=== PATIENT | female | born 1990 | race Caucasian/White ===

== ENCOUNTER 2023-08-26 07:30 | Inpatient (IN) ==
--- NOTE | 2023-08-10 09:02 | Anesthesiology Consultation ---
Date of Service August 10, 2023 Assessment & Plan (1) Encounter for pre-operative examination: Chart Review Chart Review: entry clerk initiated Per OB records- initial done with 1st due to FTP (baby 10lbs 6oz). Second had successful delivery. Would like to possibly attempt with current . -Infectious Disease screening: Per PAT nursing assessment on 08/10/23. No known infectious disease contacts in past 10 days or current infectious disease symptoms. No recent travel outside the country. History Surgery Operation Date: 08/26/23 07:30 Proposed Procedures p Section (Delivey of Baby Through Abdominal Incision) - Anuel Joshua MD Height/Weight Height: 5 ft 3 in Weight: 79.379 kg Allergies Allergy/AdvReac Type Severity Reaction Status Date / Time amoxicillin AdvReac Intermediate Gastrointestinal Verified 08/10/23 08:33 Upset erythromycin base AdvReac Intermediate Gastrointestinal Verified 08/10/23 08:33 Upset Medications Home Medications Medication Instructions Recorded Confirmed Last Taken omega-3 fatty acids [Fish Oil] 1 tab PO DAILY 04/11/23 08/10/23 Unknown 21-iron fu-folic acid 1 tab PO DAILY 04/11/23 08/10/23 Unknown [ Complete] Past Medical History Medical History History of chicken pox History of COVID-19 2020- no hosp; resolved No known health problems Past Family History Family History Grandfather (Maternal) Cardiovascular disease Grandmother (Maternal) Thyroid disease Denies family history of Ovarian cancer Breast cancer Colorectal cancer Past Surgical History Surgical History S/P section S/P wisdom tooth extraction Social History Smoking Status: Never smoker Do You Dip or Chew Tobacco: No Hx Alcohol Use: No Hx Substance Use: No substance use type: does not use Lab Results Anesthesia Preop Results Results Anesthesia Widget: Hgb 11.7 g/dl (12.0-16.0) L 06/16/23 Hct 36.2 % (37.0-47.0) L 06/16/23
[2023-08-26] MEDS ORDERED: OXYTOCIN 30 UNITS/NSS 30 UNITS/500 ML BAG IV PRN ×2 (07:43→20:27)
[2023-08-26] MEDS ORDERED: CALCIUM CARBONATE 500 MG CHEWABLE TAB PO PRN (07:43)
[2023-08-26] MEDS ORDERED: LIDOCAINE 1% LOCAL 20 ML VIAL INFIL PRN (07:43)
[2023-08-26 08:37] LABS: Hematocrit (blood only) 35.9 % (37.0-47.0); Hemoglobin 11.9 g/dl (12.0-16.0); Mean Corpuscular Hemoglobin 29.6 pg (25.0-34.0); Mean Corpuscular Hgb Conc 33.1 g/dL (32.0-36.0); Mean Corpuscular Volume 89.3 fL (80.0-100.0); Mean Platelet Volume 11.9 fL (9.4-12.4); Platelet Count 278 K/uL (130-400); RDW Coefficient of Variation 14.1 % (11.5-14.5); RDW Standard Deviation 45.6 fL (36.4-46.3); Red Blood Count 4.02 M/uL (4.20-5.40); White Blood Count 10.31 K/ul (4.8-10.8)
[2023-08-26] MEDS ORDERED: SODIUM CHLORIDE 0.9% 250 ML IV PRN (08:41)
[2023-08-26] MEDS: LACTATED RINGER'S 1,000 ML IV PRN (08:48)
[2023-08-26] MEDS: OXYTOCIN 30 UNITS/NSS 30 UNITS/500 ML BAG IV PRN (08:54)
--- NOTE | 2023-08-26 09:02 | History & Physical Report ---
Date of Service August 26, 2023 Assessment & Plan (1) Previous delivery affecting , antepartum: Plan: Nayana is a 32-year-old -0-0-2 currently at 40 weeks 6 days gestational age presents for a trial of labor after section induction of labor as detailed per HPI. We reviewed risks of previously and consent forms for a reviewed and signed. 1. Fetus: NST reactive 2. Labor: Pitocin per regular protocol. Will AROM when appropriate 3. GBS negative 4. Vitals within normal 5. Trial of labor after . Risks were reviewed and consent forms signed (2) Encounter for induction of labor: (3) Patient desires vaginal after section (): (4) History of : (5) Term : Admission and Anticipated Discharge Date Admission Date: August 26, 2023 History of Present Illness Primary Care Provider: NO PCP Nayana is a 32-year-old currently at 40 weeks 6 days gestational age presents for induction of labor trial of labor after . Patient has a history of a prior successful in 2021. Had a for failure to progress with delivery of a 10-1/2 pound baby. We have previously discussed the risks of including induction specifically. Discussed the risk of uterine rupture and potential outcomes associated with uterine rupture. All questions answered. consent form provided and signed today. This is otherwise uncomplicated to date OB Labs: Blood Type O Positive 04/18/23 Antibody Screen NEGATIVE 04/18/23 Hemoglobin 11.7 g/dl (12.0-16.0) L 06/16/23 Hematocrit 36.2 % (37.0-47.0) L 06/16/23 Mean Corpuscular Volume 86.8 fL (80.0-100.0) 04/18/23 Platelet Count 353 K/uL (130-400) 04/18/23 Rubella IgG Antibody Immune (Immune) 04/18/23 Rapid Plasma Reagin Nonreactive (Nonreactive) 04/18/23 Hepatitis B Surface Antigen. NON-REACTIVE (NON-REACTIVE) 04/18/23 Hepatitis C Antibody (EIA) NON-REACTIVE (NON-REACTIVE) 04/18/23 HIV (1&2) Ag and Ab Confirmation NON-REACTIVE (NON-REACTIVE) 04/18/23 Glucose 1 Hour 50 gm Load 104 mg/dl (70-130) 06/16/23 OB Optional Labs: No Data to Display Labs Reviewed: Initial OB Labs Blood Type & RH Antibody Screen HCT/HGB Platelets Hep C IgG 13yrs+ Old Pap Test Chlamydia- negative 01/13/23 Gonorrhea- negative 01/13/23 Rubella RPR Urine Culture/Screen-no significant growth 01/13/23 Allergies Allergy/AdvReac Type Severity Reaction Status Date / Time amoxicillin AdvReac Intermediate Gastrointestinal Verified 08/25/23 15:52 Upset erythromycin base AdvReac Intermediate Gastrointestinal Verified 08/25/23 15:52 Upset Home Medications Medication Instructions Recorded Confirmed Type omega-3 fatty acids [Fish Oil] 1 tab PO DAILY 04/11/23 08/26/23 History 21-iron fu-folic acid 1 tab PO DAILY 04/11/23 08/25/23 History [ Complete] Patient History Medical History History of chicken pox History of COVID-19 2020- no hosp; resolved No known health problems Surgical History S/P section S/P wisdom tooth extraction Family History Grandfather (Maternal) Cardiovascular disease Grandmother (Maternal) Thyroid disease Denies family history of Ovarian cancer Breast cancer Colorectal cancer Social History Smoking Status: Never smoker Second Hand Exposure: No; Do You Dip or Chew Tobacco: No; Tobacco Cessation Education Requested by Patient: No Hx Alcohol Use: No Hx Substance Use: No Preferred Language: Icelandic Communication Ability: Effective Hatchery Laborer Required: No Beliefs That Will Affect Care: None marital status: marital status details: David Cuellar(32) [phone] Current Living Situation: Spouse and Family Current Living Situation Comment: Pt lives with her and 4 yo son Christopher and 1.5 yo son Jm current occupational status: employed 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 Other Information That Helps Us Care for You: No Feels Safe at Home: Yes Safety Concerns: Feels Safe At This Time Assistive Devices: Glasses Physical Exam Genitourinary: normal external appearance OB Exam Abdomen: + vertex Manual OB Exam: + cervical dilation (1-2), + cervical effacement 80% and + station -2 OB Exam Monitor Tracing: + external FHT monitor used, + external uterine monitor used, + category I and + normal FHT variability Results & Data Vital Signs (Past 12 Hours) Vital Signs Temp Pulse Resp BP O2 Del Method 08/26/23 08:05 36.5 C 16 Room Air 08/26/23 07:45 89 130/78 Coding Level of Care Code None Diagnoses Previous delivery affecting , antepartum O34.219 Encounter for induction of labor Z34.90 Patient desires vaginal after section () O34.219 History of Z98.891 Term Z34.90
[2023-08-26] MEDS ORDERED: NALOXONE HCL 0.4 MG/1 ML VIAL/CARP IV PRN (18:04)
[2023-08-26] MEDS ORDERED: ROPIVACAINE 0.5% PF 5 MG/ML 20 ML VIAL EPI PRN (18:04)
[2023-08-26] MEDS ORDERED: fentANYL 2 MCG/ML BUPIVacaine 0.125%-NSS 100ML BAG EPI PRN (18:04)
[2023-08-26] MEDS ORDERED: NALBUPHINE HCL 5 MG in SYRINGE 0 ML IV PRN (18:04)
[2023-08-26] MEDS ORDERED: fentaNYL citrate PF 100 MCG/2 ML VIAL EPI PRN (18:04)
[2023-08-26] MEDS ORDERED: ePHEDrine sulfate 50 MG/ML AMP IV PRN (18:04)
[2023-08-26] MEDS ORDERED: SODIUM CHLORIDE 0.9% PF INJ 10 ML VIAL EPI PRN (18:04)
[2023-08-26] MEDS ORDERED: diphenhydrAMINE 50 MG/ML VIAL IV PRN (18:04)
[2023-08-26] MEDS ORDERED: LIDOCAINE 2% MPF LOCAL 5 ML VIAL EPI PRN (18:04)
[2023-08-26] MEDS ORDERED: NALOXONE HCL 1 MG in SODIUM CHLORIDE 0.9% 1,000 ML IV PRN (18:04)
[2023-08-26] MEDS ORDERED: BUPIVACAINE 0.25% PF 30 ML VIAL EPI PRN (18:04)
--- NOTE | 2023-08-26 18:04 | Anesthesiology Consultation ---
Date of Service August 26, 2023 Assessment & Plan (1) Encounter for pre-operative examination: Chart Review Chart Review: Patient NOT seen in Pre Admission Testing and Acceptable Risk for Labor Epidural Consults Requested none History Surgery Operation Date: 08/26/23 07:30 Proposed Procedures p Section - Anuel Joshua MD Height/Weight Height: 5 ft 3 in Weight: 79.832 kg Allergies Allergy/AdvReac Type Severity Reaction Status Date / Time amoxicillin AdvReac Intermediate Gastrointestinal Verified 08/25/23 15:52 Upset erythromycin base AdvReac Intermediate Gastrointestinal Verified 08/25/23 15:52 Upset Medications Home Medications Medication Instructions Recorded Confirmed Last Taken omega-3 fatty acids [Fish Oil] 1 tab PO DAILY 04/11/23 08/26/23 08/25/23 10:00 21-iron fu-folic acid 1 tab PO DAILY 04/11/23 08/25/23 Unknown [ Complete] Active Medications Generic Name Dose Route Start Last Admin Trade Name Freq PRN Reason Stop Dose Admin Lactated Ringer's 1,000 mls @ 125 mls/hr 08/26/23 07:43 08/26/23 17:46 Lr IV 08/28/23 07:42 999 mls/hr .Q8H PRN Infusion L&D Protocol Protocol Oxytocin 30 units in 500 mls @ 8 mls/hr 08/26/23 07:43 08/26/23 17:34 Pitocin 30 Units/Nss IV 08/28/23 07:42 0.48 units/hr .Q24H PRN 8 mls/hr Labor Induction/Augmentation Titration Protocol 0.48 UNITS/HR Past Medical History Medical History No known health problems History of COVID-19 2020- no hosp; resolved History of chicken pox Past Family History Family History Grandfather (Maternal) Cardiovascular disease Grandmother (Maternal) Thyroid disease Denies family history of Ovarian cancer Breast cancer Colorectal cancer Past Surgical History Surgical History S/P wisdom tooth extraction S/P section Social History Smoking Status: Never smoker Do You Dip or Chew Tobacco: No Hx Alcohol Use: No Hx Substance Use: No substance use type: does not use Physical Exam Vital Signs Last Vital Signs Temp 98.2 F 08/26/23 17:00 Pulse 100 H 08/26/23 16:59 Resp 22 08/26/23 17:30 BP 119/71 08/26/23 16:59 O2 Del Method Room Air 08/26/23 08:05 Testing Laboratory Results 08/26/23 08:15 Blood Type O Positive 08/26/23 08:15 Antibody Screen NEGATIVE 08/26/23 08:15
[2023-08-26] MEDS: LIDOCAINE 2%/EPINEPHRINE 1:200,000 20 ML PF ONE (18:18)
[2023-08-26] MEDS: BUPIVACAINE 0.25% PF 30 ML VIAL ONE (18:18)
[2023-08-26] MEDS: fentANYL 2 MCG/ML BUPIVacaine 0.125%-NSS 100ML BAG ONE (18:19)
[2023-08-26] MEDS: BUPIVACAINE 0.25% PF 30 ML VIAL EPI STA (18:24)
[2023-08-26] MEDS: fentaNYL citrate PF 100 MCG/2 ML VIAL ONE (18:24)
[2023-08-26] MEDS: fentaNYL citrate PF 100 MCG/2 ML VIAL EPI STA (18:25)
[2023-08-26] MEDS: LIDOCAINE 2%/EPINEPHRINE 1:200,000 20 ML PF EPI STA (18:25)
[2023-08-26] MEDS: SODIUM CHLORIDE 0.9% PF INJ 10 ML VIAL EPI STA (19:15)
[2023-08-26] MEDS: SODIUM CHLORIDE 0.9% PF INJ 10 ML VIAL ONE (19:16)
[2023-08-26] MEDS ORDERED: HYDROCORTISONE ACETATE 25 MG SUPP PR PRN (20:27)
[2023-08-26] MEDS ORDERED: bisacodyL 10 MG SUPP PR PRN (20:27)
[2023-08-26] MEDS ORDERED: ACETAMINOPHEN 325 MG TAB PO PRN (20:27)
[2023-08-26] MEDS: ePHEDrine sulfate 50 MG/ML AMP ONE (20:28)
--- NOTE | 2023-08-26 20:32 | Delivery Summary ---
Vaginal Delivery Summary Date of Service August 26, 2023 Vaginal Delivery Summary and 2nd Degree LAC Patient progressed to 10 cm dilated 100% effaced +2 station pushed over intact perineum with epidural anesthesia and delivered a viable female with weight and Apgars pending. Head delivered without difficulty followed by shoulders and body. No nuchal cord was noted. was noted be vigorous soon after delivery and 1 minute delayed cord clamping was initiated. Cord was then double clamped and cut and remained on maternal abdomen. Cord blood obtained. Attention was turned to delivery the placenta was delivered intact three-vessel cord gentle cord traction. Inspection of perineum vagina and cervix there is noted to be a second-degree perineal laceration which was repaired with 3-0 Vicryl in traditional crown stitch. Needle sponge and instrument counts were correct at the completion of the case. Both mother and stable in the immediate postdelivery timeframe. No complications noted and blood loss per [facility]BL [facility] Vaginal Delivery Charge Delivery Type Details: and 2nd Degree LAC
--- NOTE | 2023-08-26 20:40 | Anesthesia Procedure Note ---
Date of Service August 26, 2023 Anesthesia Post Epidural Note Vital Signs Vital Signs: Temp Pulse Resp BP Pulse Ox O2 Del Method 98.2 F 66 18 118/55 L 85 L Room Air 08/26/23 20:25 08/26/23 20:38 08/26/23 20:25 08/26/23 20:38 08/26/23 19:56 08/26/23 08:05 Pain Intensity Abdomen: Pain Intensity: 8 Notes Mental Status: alert / awake / arousable and participated in evaluation Nausea / Vomiting: adequately controlled Pain: adequately controlled Airway Patency, RR, SpO2: stable & adequate BP & HR: stable & adequate Hydration State: stable & adequate Neuraxial Anesthesia: was administered and sensory block is resolving Anesthetic Complications: no major complications apparent and Pt Satisfied with anesthetic care Epidural: Removed without complications and With tip intact
[2023-08-26] MEDS: DIPHTHER/TETAN/PERTUS Vaccine (Tdap, Adol/Adult) 0.5mL IM ONE (20:44)
[2023-08-26] MEDS: DOCUSATE SODIUM 100 MG CAP PO SCH (21:00)
[2023-08-26] MEDS: BENZOCAINE 20% SPRY 85 APPLN/85 GM CAN EXT PRN (21:59)
[2023-08-27] MEDS: IBUPROFEN 600 MG TAB PO PRN (02:09)
[2023-08-27] MEDS: ACETAMINOPHEN 325 MG TAB PO PRN (06:37)
--- NOTE | 2023-08-27 06:43 | Obstetrical Progress Note ---
Date of Service August 27, 2023 Assessment & Plan (1) Encounter for care and examination after delivery: Day 1 status post . Doing well. Stable for discharge at 24 hours if preferred. Subjective Ambulation: ambulating normally Voiding: no voiding problems Passing Gas:: Yes Diet Tolerance:: regular diet Lochia:: Moderate Feeding Type:: breast feeding Physical Exam Constitutional WD/WN, vitals as above Respiratory normal respiratory effort; no respiratory distress and no labored breathing Cardiovascular Extremities: no calf tenderness Gastrointestinal (Abdomen) Inspection/Auscultation: abdomen normal to inspection; abdomen not distended Percussion/Palpation: abdomen soft; abdomen nontender, no guarding and abdomen not rigid Genitourinary OB Exam Abdomen: + fundal height Fundus: + firm and + relation to umbilicus (Below); not tender or not boggy Results & Data Vital Signs (Past 12 Hours) Vital Signs Temp Pulse Pulse Resp BP BP Pulse Ox 08/27/23 02:15 36.7 C 61 18 125/72 96 08/26/23 22:00 36.7 C 85 18 115/70 99 08/26/23 21:57 79 115/70 08/26/23 21:55 36.7 C 18 08/26/23 21:26 74 113/54 L 08/26/23 21:25 36.8 C 18 08/26/23 21:11 75 120/57 L 08/26/23 20:55 36.8 C 18 08/26/23 20:55 68 111/73 08/26/23 20:40 36.8 C 18 08/26/23 20:40 71 107/66 08/26/23 20:38 66 118/55 L 08/26/23 20:25 36.8 C 18 08/26/23 20:25 68 117/56 L 08/26/23 20:23 68 115/59 L 08/26/23 20:10 36.8 C 18 08/26/23 20:04 78 102/56 L 08/26/23 19:59 121 H 164/117 H 08/26/23 19:56 94 H 85 L 08/26/23 19:55 36.8 C 18 08/26/23 19:53 97 H 83 L 08/26/23 19:52 81 96 08/26/23 19:49 86 125/75 08/26/23 19:46 86 95 08/26/23 19:43 121/81 08/26/23 19:42 81 95 08/26/23 19:36 103 H 91 08/26/23 19:33 82 80 L 08/26/23 19:32 97 H 96 08/26/23 19:27 97 H 97 08/26/23 19:21 83 83 L 08/26/23 19:19 80 104/58 L 08/26/23 19:16 88 100 08/26/23 19:12 36.6 C 18 08/26/23 19:04 76 113/56 L 08/26/23 19:00 18 08/26/23 19:00 18 08/26/23 18:52 85 93 08/26/23 18:51 80 97 08/26/23 18:46 75 99 08/26/23 18:44 76 92 08/26/23 18:43 71 99/58 L 08/26/23 18:42 75 86 L O2 Del Method 08/27/23 02:15 Room Air 08/26/23 22:00 Room Air 08/26/23 21:57 08/26/23 21:55 08/26/23 21:26 08/26/23 21:25 08/26/23 21:11 08/26/23 20:55 08/26/23 20:55 08/26/23 20:40 08/26/23 20:40 08/26/23 20:38 08/26/23 20:25 08/26/23 20:25 08/26/23 20:23 08/26/23 20:10 08/26/23 20:04 08/26/23 19:59 08/26/23 19:56 08/26/23 19:55 08/26/23 19:53 08/26/23 19:52 08/26/23 19:49 08/26/23 19:46 08/26/23 19:43 08/26/23 19:42 08/26/23 19:36 08/26/23 19:33 08/26/23 19:32 08/26/23 19:27 08/26/23 19:21 08/26/23 19:19 08/26/23 19:16 08/26/23 19:12 08/26/23 19:04 08/26/23 19:00 08/26/23 19:00 08/26/23 18:52 08/26/23 18:51 08/26/23 18:46 08/26/23 18:44 08/26/23 18:43 08/26/23 18:42
[2023-08-27] MEDS: PRENATAL VITAMIN 1 TAB PO SCH (08:26)
[2023-08-27] MEDS: FERROUS SULFATE 325 MG TAB PO SCH (08:26)
[2023-08-27] MEDS ORDERED: bisacodyL 5 MG TABEC PO SCH (20:00)
== END 2023-08-27 20:50 | disposition home or self-care (01) | DRG 807 ==
LOC: EDSTATUS 07:30 → 4S1 07:39 → 4E2 22:40

== ENCOUNTER 2025-03-21 08:20 | Inpatient (IN) ==
[2025-03-21] MEDS ORDERED: OXYTOCIN 30 UNITS/NSS 30 UNITS/500 ML BAG IV PRN ×2 (08:32→20:10)
[2025-03-21] MEDS ORDERED: LIDOCAINE 1% LOCAL 20 ML VIAL INFIL PRN (08:32)
--- NOTE | 2025-03-21 08:35 | History & Physical Report ---
Date of Service March 21, 2025 Assessment & Plan (1) Previous delivery affecting , antepartum: (2) Elderly multigravida: Plan Plan pitocin iol, arom when appropriate, epidural on demand. consent form signed. Accepts risk with pitocin, fetus category one. anticipate . Unfortunately, gbs was not collected. Will treat as unknown status. Admission and Anticipated Discharge Date Admission Date: March 21, 2025 History of Present Illness Chief Complaint: iol Primary Care Provider: NO PCP Patient is a 34yowf with iup at 39 6/7 weeks who presents for iol. she has a hx of c/s in her first and two successful vbacs. She has a favorable cervix. and Delivery Plans AMA Weekly NST's @ 36 weeks Hx FTP, macrosomia 2 successful wishes to TOLAC--Consent signed OB Labs: Blood Type O Positive 08/23/24 Antibody Screen NEGATIVE 08/23/24 Hgb 11.3 g/dl (12.0-16.0) L 01/19/25 Hct 34.4 % (37.0-47.0) L 01/19/25 MCV 86.7 fL (80.0-100.0) 08/23/24 Plt Count 443 K/uL (130-400) H 08/23/24 Rubella IgG Antibody Immune (Immune) 08/23/24 RPR Nonreactive (Nonreactive) 04/18/23 Treponema pallidum Ab Negative (Negative) 01/19/25 Hep Bs Antigen Negative (Negative) 08/23/24 Hep Bs Antigen NON-REACTIVE (NON-REACTIVE) 04/18/23 Hepatitis C Antibody Negative (Negative) 08/23/24 Hepatitis C Ab (EIA) NON-REACTIVE (NON-REACTIVE) 04/18/23 HIV 1&2 Ab/P24 Ag 4thGn Negative (Negative) 08/23/24 HIV (1&2) Ag & Ab Conf NON-REACTIVE (NON-REACTIVE) 04/18/23 Glucose 1 Hr 50 gm 132 mg/dl (70-130) H 10/25/24 OB Optional Labs: Chlamydia trachomatis RNA Not Detected (NotDetected) 08/23/24 Neisseria gonorrhoeae RNA Not Detected (NotDetected) 08/23/24 Labs Reviewed: passed 16 week 2 hr gtt--akh declined genetics gbs --not obtained Allergies Allergy/AdvReac Type Severity Reaction Status Date / Time amoxicillin AdvReac Intermediate Gastrointestinal Verified 03/21/25 08:50 Upset erythromycin base AdvReac Intermediate Gastrointestinal Verified 03/21/25 08:50 Upset Home Medications Medication Instructions Recorded Confirmed Type omega-3 fatty acids [Fish Oil] 1 tab PO DAILY 04/11/23 03/21/25 History 21-iron fu-folic acid 1 tab PO DAILY 04/11/23 03/21/25 History [ Complete] Patient History Medical History (Updated 03/21/25 @ 08:49 by Dorys Hughes, RN) History of 2 successful No known health problems History of COVID-19 2020- no hosp; resolved History of chicken pox Surgical History (Updated 03/21/25 @ 08:49 by Dorys Hughes, RN) S/P wisdom tooth extraction S/P section 2019- Failure to progress Family History Grandfather (Maternal) Cardiovascular disease Grandmother (Maternal) Thyroid disease Denies family history of Ovarian cancer Breast cancer Colorectal cancer Social History (Updated 03/21/25 @ 08:50 by Dorys Hughes, [email or web address]) Smoking Status: Never smoker Second Hand Exposure: No; Do You Dip or Chew Tobacco: No; Hx Alcohol Use: No Hx Substance Use: No Preferred Language: French Communication Ability: Effective Pipelines Laborer Required: No Beliefs That Will Affect Care: None marital status: marital status details: David Cuellar(33) [phone] Current Living Situation: Spouse and Family Current Living Situation Comment: Pt lives with her and 3 children, no pet current occupational status: unemployed current occupation: homemaker Feels Safe at Home: Yes Safety Concerns: Feels Safe At This Time OB History Past Pregnancies Del. Date GA wks Lbr Lgth wt Sex Type del Anes Place Del Prov ? Comment 03/09/19 40 36 10-6 M Spinal Other [place] N FTP 10/21/21 40 6 7-8 M Epidu ral Other [facility] N 08/26/23 40 8lbs 9.2ozs F E pidural [facility] Dr[facility] [employer] REPRESENTATIVE History noncontributory Physical Exam Constitutional: WD/WN, vitals as above Gastrointestinal (Abdomen): soft, gravid, nt Psychiatric: A+Ox3, euthymic affect Genitourinary: cx--/-2/post/soft toco--irregular efm--130s with mod variability, accels to 50s, no decels Coding Level of Care Code None Diagnoses Previous delivery affecting , antepartum O34.219 Elderly multigravida O09.529
[2025-03-21] MEDS ORDERED: SODIUM CHLORIDE 0.9% 100 ML IV PRN (09:17)
[2025-03-21 09:48] LABS: Hematocrit (blood only) 33.3 % (37.0-47.0); Hemoglobin 10.7 g/dL (12.0-16.0); Mean Corpuscular Hemoglobin 28.0 pg (25.0-34.0); Mean Corpuscular Volume 87.2 fL (80.0-100.0); Platelet Count 289 K/uL (130-400); RDW Standard Deviation 42.2 fL (36.4-46.3); Red Blood Count 3.82 M/uL (4.20-5.40); White Blood Count 11.85 K/ul (4.8-10.8)
[2025-03-21] MEDS: LACTATED RINGER'S 1,000 ML IV PRN (10:01)
[2025-03-21] MEDS: OXYTOCIN 30 UNITS/NSS 30 UNITS/500 ML BAG IV PRN (10:01)
[2025-03-21] MEDS: PENICILLIN GK 6 MU in DEXTROSE 5% 250 ML IV STA (10:27)
[2025-03-21] MEDS ORDERED: ROPIVACAINE 0.5% PF 5 MG/ML 20 ML VIAL EPI PRN (13:13)
[2025-03-21] MEDS ORDERED: NALOXONE HCL 1 MG in SODIUM CHLORIDE 0.9% 1,000 ML IV PRN (13:13)
[2025-03-21] MEDS ORDERED: ONDANSETRON INJ 2 MG/ML 2 ML VIAL IV PRN (13:13)
[2025-03-21] MEDS ORDERED: diphenhydrAMINE 50 MG/ML VIAL IV PRN (13:13)
[2025-03-21] MEDS ORDERED: NALOXONE HCL 0.4 MG/1 ML VIAL/CARP IV PRN (13:13)
[2025-03-21] MEDS ORDERED: LIDOCAINE 2% MPF LOCAL 5 ML VIAL EPI PRN (13:13)
[2025-03-21] MEDS ORDERED: fentANYL 2 MCG/ML BUPIVacaine 0.125%-NSS 100ML BAG EPI PRN (13:13)
[2025-03-21] MEDS ORDERED: SODIUM CHLORIDE 0.9% PF INJ 10 ML VIAL EPI PRN (13:13)
[2025-03-21] MEDS ORDERED: NALBUPHINE HCL INJ 10 MG/ML AMP IV PRN (13:13)
--- NOTE | 2025-03-21 13:13 | Anesthesiology Consultation ---
Date of Service March 21, 2025 Assessment & Plan (1) Encounter for pre-operative examination: Chart Review Chart Review: Patient NOT seen in Pre Admission Testing and Acceptable Risk for Labor Epidural Consults Requested none History Height/Weight Height: 5 ft 3 in Weight: 78.018 kg Allergies Allergy/AdvReac Type Severity Reaction Status Date / Time amoxicillin AdvReac Intermediate Gastrointestinal Verified 03/21/25 08:50 Upset erythromycin base AdvReac Intermediate Gastrointestinal Verified 03/21/25 08:50 Upset Medications Home Medications Medication Instructions Recorded Confirmed Last Taken omega-3 fatty acids [Fish Oil] 1 tab PO DAILY 04/11/23 03/21/25 08/25/23 10:00 21-iron fu-folic acid 1 tab PO DAILY 04/11/23 03/21/25 Unknown [ Complete] Active Medications Generic Name Dose Route Start Last Admin Trade Name Freq PRN Reason Stop Dose Admin Oxytocin 30 units in 500 mls @ 8 mls/hr 03/21/25 08:32 03/21/25 11:45 Pitocin 30 Units/Nss IV 03/23/25 08:31 0.48 units/hr .Q24H PRN 8 mls/hr Labor Induction/Augmentation Titration Protocol 0.48 UNITS/HR Lactated Ringer's 1,000 mls @ 125 mls/hr 03/21/25 08:32 03/21/25 12:30 Lr IV 03/23/25 08:31 999 mls/hr .Q8H PRN Infusion L&D Protocol Protocol Past Medical History Medical History History of 2 successful No known health problems History of COVID-19 2020- no hosp; resolved History of chicken pox Past Family History Family History Grandfather (Maternal) Cardiovascular disease Grandmother (Maternal) Thyroid disease Denies family history of Ovarian cancer Breast cancer Colorectal cancer Past Surgical History Surgical History S/P wisdom tooth extraction S/P section 2019- Failure to progress Social History Smoking Status: Never smoker Do You Dip or Chew Tobacco: No Hx Alcohol Use: No Hx Substance Use: No substance use type: does not use Physical Exam Vital Signs Last Vital Signs Temp 98.2 F 03/21/25 08:44 Pulse 64 03/21/25 13:12 Resp 18 03/21/25 08:44 BP 98/56 L 03/21/25 13:04 Testing Laboratory Results 03/21/25 09:22 Blood Type O Positive 03/21/25 09:22 Antibody Screen NEGATIVE 03/21/25 09:22
[2025-03-21] MEDS: BUPIVACAINE 0.25% PF 30 ML VIAL ONE (13:35)
[2025-03-21] MEDS: LIDOCAINE 2%/EPINEPHRINE 1:200,000 20 ML PF ONE (13:35)
[2025-03-21] MEDS: fentANYL 2 MCG/ML BUPIVacaine 0.125%-NSS 100ML BAG ONE (13:40)
[2025-03-21] MEDS: SODIUM CHLORIDE 0.9% PF INJ 10 ML VIAL ONE (13:42)
[2025-03-21] MEDS: BUPIVACAINE 0.25% PF 30 ML VIAL EPI STA (14:09)
[2025-03-21] MEDS: LIDOCAINE 2%/EPINEPHRINE 1:200,000 20 ML PF EPI STA (14:09)
[2025-03-21] MEDS: SODIUM CHLORIDE 0.9% PF INJ 10 ML VIAL EPI STA (14:09)
[2025-03-21] MEDS: PENICILLIN GK 3 MU in DEXTROSE 5% 100 ML IV PRN (14:30)
--- NOTE | 2025-03-21 14:43 | Labor Progress Brief Note ---
Date of Service March 21, 2025 Subjective comfortable after epidural Assessment & Plan (1) Previous delivery affecting , antepartum: (2) Encounter for induction of labor: Plan continue current plan. fetus category one. Admission and Anticipated Discharge Date Admission Date: March 21, 2025 Physical Exam Physical Exam: cx--4/80/-2, off to right arom--clear toco==q2-3, pit at 8 efm--130s wtih mod variability, accels present, no decels Results & Data Vital Signs (Past 12 Hours) Vital Signs Temp Pulse Resp BP Pulse Ox 03/21/25 14:37 71 98 03/21/25 14:32 80 98 03/21/25 14:28 65 106/61 03/21/25 14:27 64 97 03/21/25 14:23 68 112/66 03/21/25 14:22 68 97 03/21/25 14:18 64 110/64 03/21/25 14:17 63 97 03/21/25 14:15 18 03/21/25 14:14 61 110/66 03/21/25 14:12 61 98 03/21/25 14:08 68 111/65 03/21/25 14:07 69 98 03/21/25 14:05 65 109/64 03/21/25 14:02 68 98 03/21/25 14:00 20 03/21/25 13:58 68 106/62 03/21/25 13:57 66 97 03/21/25 13:54 66 108/61 03/21/25 13:52 65 97 03/21/25 13:49 71 117/61 03/21/25 13:47 70 98 03/21/25 13:45 18 03/21/25 13:42 98 03/21/25 13:42 74 03/21/25 13:42 73 114/63 03/21/25 13:40 71 113/65 03/21/25 13:38 66 107/62 03/21/25 13:37 63 99 03/21/25 13:36 69 111/63 03/21/25 13:35 70 110/59 L 03/21/25 13:32 72 98 03/21/25 13:27 72 100 03/21/25 13:22 79 100 03/21/25 13:17 69 100 03/21/25 13:12 64 100 03/21/25 13:04 70 98/56 L 03/21/25 12:05 62 111/75 03/21/25 11:06 72 114/74 03/21/25 11:00 16 03/21/25 11:00 36.8 C 16 03/21/25 10:03 73 116/76 03/21/25 08:44 36.8 C 18 03/21/25 08:35 76 122/75 Coding Level of Care Code None Diagnoses Previous delivery affecting , antepartum O34.219 Encounter for induction of labor Z34.90
[2025-03-21] MEDS: BUPIVACAINE 0.25% PF 30 ML VIAL EPI PRN (17:28)
--- NOTE | 2025-03-21 17:30 | Anesthesia Procedure Note ---
Date of Service March 21, 2025 Anesthesia Epidural Re-Dose Vital Signs Temp Pulse Resp BP Pulse Ox 98.1 F 68 20 107/65 99 03/21/25 17:00 03/21/25 17:27 03/21/25 17:00 03/21/25 17:19 03/21/25 17:27 Notes Pain Intensity: 2 Dilatation (cm): 4.5 Effacement (%): 80 Called by nursing to evaluate epidural as the patient is having increased pain. The epidural was re-dosed with the following medications (all medications via epidural route) after negative aspiration of the epidural catheter for CSF/HEME. 0.25% Bupivacaine (8ml) with 100 mcg Fentanyl After Epidural Re-Dose Mental Status: alert / awake / arousable Pain: improving with treatment Airway Patency, RR, SpO2: stable & adequate BP & HR: stable & adequate
--- NOTE | 2025-03-21 17:51 | Labor Progress Brief Note ---
Date of Service March 21, 2025 Subjective comfortable. baby just started having variables. checked by nursing and thought complete and will start pushing Assessment & Plan (1) Encounter for induction of labor: Plan position for resolution of lip and descent of head. Fetus overall reassuring category two. anticipate . Admission and Anticipated Discharge Date Admission Date: March 21, 2025 Physical Exam Physical Exam: cx--ant lip/0, not reducible with pushing toco--q2min, pit at 10 efm--130 with mod variability, accels present, variables with contractions Results & Data Vital Signs (Past 12 Hours) Vital Signs Temp Pulse Resp BP Pulse Ox 03/21/25 17:47 92 H 99 03/21/25 17:45 98 H 94 03/21/25 17:39 83 139/63 03/21/25 17:37 66 98 03/21/25 17:36 68 201/92 H 03/21/25 17:32 77 99 03/21/25 17:27 68 99 03/21/25 17:22 62 98 03/21/25 17:19 72 107/65 03/21/25 17:17 63 97 03/21/25 17:12 66 97 03/21/25 17:07 73 99 03/21/25 17:04 64 109/64 03/21/25 17:02 85 98 03/21/25 17:00 20 03/21/25 17:00 36.7 C 20 03/21/25 16:57 61 97 03/21/25 16:52 65 97 03/21/25 16:49 82 111/61 03/21/25 16:47 68 98 03/21/25 16:42 63 97 03/21/25 16:37 71 98 03/21/25 16:36 75 135/80 03/21/25 16:32 65 98 03/21/25 16:30 18 03/21/25 16:30 18 03/21/25 16:27 63 97 03/21/25 16:22 62 97 03/21/25 16:19 64 121/73 03/21/25 16:17 64 98 03/21/25 16:12 70 98 03/21/25 16:07 64 97 03/21/25 16:03 71 108/66 03/21/25 16:02 67 98 03/21/25 16:00 20 03/21/25 16:00 20 03/21/25 15:57 72 98 03/21/25 15:52 64 98 03/21/25 15:50 68 117/70 03/21/25 15:47 69 98 03/21/25 15:42 67 97 03/21/25 15:37 80 98 03/21/25 15:35 80 117/59 L 03/21/25 15:32 76 98 03/21/25 15:30 20 03/21/25 15:30 20 03/21/25 15:27 75 96 03/21/25 15:22 81 99 03/21/25 15:20 72 104/64 03/21/25 15:17 72 99 03/21/25 15:12 80 98 03/21/25 15:07 68 97 03/21/25 15:04 63 115/62 03/21/25 15:02 68 97 03/21/25 15:00 18 03/21/25 15:00 36.9 C 18 03/21/25 14:57 68 97 03/21/25 14:52 75 98 03/21/25 14:50 68 110/68 03/21/25 14:47 62 97 03/21/25 14:45 18 03/21/25 14:42 78 97 03/21/25 14:37 71 98 03/21/25 14:32 80 98 03/21/25 14:30 20 03/21/25 14:28 65 106/61 03/21/25 14:27 64 97 03/21/25 14:23 68 112/66 03/21/25 14:22 68 97 03/21/25 14:18 64 110/64 03/21/25 14:17 63 97 03/21/25 14:15 18 03/21/25 14:14 61 110/66 03/21/25 14:12 61 98 03/21/25 14:08 68 111/65 03/21/25 14:07 69 98 03/21/25 14:05 65 109/64 03/21/25 14:02 68 98 03/21/25 14:00 20 03/21/25 13:58 68 106/62 03/21/25 13:57 66 97 03/21/25 13:54 66 108/61 03/21/25 13:52 65 97 12/18/25 13:49 71 117/61 03/21/25 13:47 70 98 03/21/25 13:45 18 03/21/25 13:42 98 03/21/25 13:42 74 03/21/25 13:42 73 114/63 03/21/25 13:40 71 113/65 03/21/25 13:38 66 107/62 03/21/25 13:37 63 99 03/21/25 13:36 69 111/63 03/21/25 13:35 70 110/59 L 03/21/25 13:32 72 98 03/21/25 13:27 72 100 03/21/25 13:22 79 100 03/21/25 13:17 69 100 03/21/25 13:12 64 100 03/21/25 13:04 70 98/56 L 03/21/25 12:05 62 111/75 03/21/25 11:06 72 114/74 03/21/25 11:00 16 03/21/25 11:00 36.8 C 16 03/21/25 10:03 73 116/76 03/21/25 08:44 36.8 C 18 03/21/25 08:35 76 122/75 Coding Level of Care Code None Diagnoses Encounter for induction of labor Z34.90
[2025-03-21] MEDS ORDERED: NURSING L&D Epidural Breakthrough Pain Update ONE (18:33)
--- NOTE | 2025-03-21 19:45 | Delivery Summary ---
Vaginal Delivery Summary Date of Service March 21, 2025 Vaginal Delivery Summary and 2nd Degree LAC Pre-operative Diagnosis: at 39 weeks hx of first delivery c/s hx of 2 successful vbacs Post-operative Diagnosis: same Procedure: pitocin iol epidural arom second degree laceration and repair QBL: 250cc Anesthesia: epidural Procedure: the patient was admitted with a favorable cervix. Pitocin augmentation and epidural at 4cm. then arom for clear fluid. She progressed to c/c/+1. The patient pushed for 2 contractions to deliver a viable male in rop position. The nose and mouth were bulb suctioned on the perineum and the rest of the was then delivered without difficulty through a loose nuchal cord. The baby was vigorous. The nose and mouth were again bulb suctioned and the infant was placed in the maternal abdomen for drying and attention. Cord was clamped and cut at one minute of life. Cord blood and segment obtained. Placenta delivered spontaneous, intact with a three vessel cord. Cervix/sulci/rectum were intact. A second degree perineal laceration was repaired in the normal standard fashion. Hemostasis obtained with dilute pitocin and fundal massage. Apgars were 8/9. Mother and baby doing well at the end of the delivery. [facility] Vaginal Delivery Charge Delivery Type Details: and 2nd Degree LAC
[2025-03-21] MEDS ORDERED: DIPHTHER/TETAN/PERTUS Vaccine (Tdap, Adol/Adult) 0.5mL IM ONE (20:10)
[2025-03-21] MEDS ORDERED: HYDROCORTISONE ACETATE 25 MG SUPP PR PRN (20:10)
[2025-03-21] MEDS: DOCUSATE SODIUM 100 MG CAP PO SCH (20:51)
[2025-03-21] MEDS: BENZOCAINE 20% SPRY 85 APPLN/85 GM CAN EXT PRN (20:51)
[2025-03-21] MEDS: IBUPROFEN 600 MG TAB PO PRN (20:51)
--- NOTE | 2025-03-21 20:54 | Anesthesia Procedure Note ---
Date of Service March 21, 2025 Anesthesia Post Epidural Note Vital Signs Vital Signs: Temp Pulse Resp BP Pulse Ox 98.1 F 80 18 135/79 79 L 03/21/25 19:05 03/21/25 20:44 03/21/25 19:05 03/21/25 20:44 03/21/25 19:20 Pain Intensity Bilateral Abdomen: Pain Intensity: 3 Notes Mental Status: alert / awake / arousable and participated in evaluation Nausea / Vomiting: adequately controlled Pain: adequately controlled Airway Patency, RR, SpO2: stable & adequate BP & HR: stable & adequate Hydration State: stable & adequate Neuraxial Anesthesia: was administered and sensory block is resolving Anesthetic Complications: no major complications apparent and Pt Satisfied with anesthetic care Epidural: Removed without complications and With tip intact
[2025-03-21 22:55] VITALS: RESP 16
[2025-03-21] MEDS: ACETAMINOPHEN 325 MG TAB PO PRN (23:37)
[2025-03-22 06:29] LABS: Hematocrit (blood only) 29.3 % (37.0-47.0); Hemoglobin 9.8 g/dL (12.0-16.0)
--- NOTE | 2025-03-22 06:56 | Obstetrical Progress Note ---
Date of Service March 22, 2025 Assessment & Plan (1) Encounter for assessment: Plan Doing well. Would like to be d/c later tonight after 24 hours. Instructions reviewed. rtc in 6 weeks for pp visit. Day #:: 1 Subjective Ambulation: ambulating normally Voiding: no voiding problems Passing Gas:: Yes Diet Tolerance:: regular diet Lochia:: Small Feeding Type:: breast feeding Doing well. Physical Exam Constitutional well developed Respiratory normal respiratory effort, lungs clear to auscultation Cardiovascular RRR, no murmur, no edema Extremities: no calf tenderness and no edema Gastrointestinal (Abdomen) soft, nt, nd, ff/nt at u Psychiatric A+Ox3, euthymic affect Results & Data Vital Signs (Past 12 Hours) Vital Signs Temp Pulse Pulse Resp BP BP Pulse Ox 03/22/25 03:45 36.8 C 66 16 117/68 96 03/21/25 23:15 36.8 C 82 16 128/74 97 03/21/25 22:55 36.7 C 69 16 136/81 96 03/21/25 21:59 65 122/70 03/21/25 21:45 36.7 C 18 03/21/25 21:44 67 121/70 03/21/25 21:29 66 121/71 03/21/25 21:14 74 119/77 03/21/25 20:59 179 H 128/77 03/21/25 20:45 18 03/21/25 20:44 80 135/79 03/21/25 20:30 64 125/94 03/21/25 20:15 36.7 C 18 03/21/25 20:01 70 130/67 03/21/25 19:44 76 144/69 H 03/21/25 19:33 74 140/72 03/21/25 19:20 87 79 L 03/21/25 19:17 96 H 100 03/21/25 19:12 120 H 100 03/21/25 19:07 88 99 03/21/25 19:05 18 03/21/25 19:05 36.7 C 18 03/21/25 19:04 82 108/77 03/21/25 19:02 79 100 03/21/25 18:57 86 99 O2 Del Method 03/22/25 03:45 Room Air 03/21/25 23:15 Room Air 03/21/25 22:55 Room Air 03/21/25 21:59 03/21/25 21:45 03/21/25 21:44 03/21/25 21:29 03/21/25 21:14 03/21/25 20:59 03/21/25 20:45 03/21/25 20:44 03/21/25 20:30 03/21/25 20:15 03/21/25 20:01 03/21/25 19:44 03/21/25 19:33 03/21/25 19:20 03/21/25 19:17 03/21/25 19:12 03/21/25 19:07 03/21/25 19:05 03/21/25 19:05 03/21/25 19:04 03/21/25 19:02 03/21/25 18:57
[2025-03-22] MEDS: PRENATAL VITAMIN 1 TAB PO SCH (07:22)
[2025-03-22 17:40] VITALS: PULSE 83
[2025-03-22 20:41] VITALS: BP 123/76; TEMP 98.6; O2SAT 97
== END 2025-03-22 21:15 | disposition home or self-care (01) | DRG 807 ==
LOC: 4S1 08:20 → 4S4 23:11 → 4E2 03-22 00:29